=== PATIENT | female | born 1960 ===

== ENCOUNTER 2017-01-28 21:46 | Observation (INO) | payer MEDICAID ==
[2017-01-28 21:46] VITALS: BMI 18.8
[2017-01-28] MEDS ORDERED: Sodium Chloride 0.9% 1,000 ML IV ONE (22:51)
[2017-01-28] MEDS ORDERED: Glucagon Recombinant 1 mg Inj SC STA (22:51)
[2017-01-28] MEDS ORDERED: Sodium Chloride 0.9% 1,000 ML ONE (23:00)
[2017-01-28] MEDS ORDERED: Glucagon Recombinant 1 mg Inj ONE (23:00)
[2017-01-28 23:16] LABS: BASO # 0.1 K/uL (0.0-0.2); BASO % 0.5 % (0.0-2.0); EOS # 0.1 K/uL (0.0-0.7); EOS % 0.9 % (0.0-4.0); HEMATOCRIT 37.8 % (34.0-47.0); LYMPH # 2.4 K/uL (1.0-4.3); LYMPH % 24.4 % (20.0-40.0); MEAN CELL VOLUME 95.2 fL (81.0-99.0); MEAN CORPUSCULAR HEMOGLOBIN 31.9 pg (27.0-31.0); MEAN CORPUSCULAR HGB CONC 33.5 g/dL (33.0-37.0); MEAN PLATELET VOLUME 8.1 fL (7.2-11.7); MONO # 0.7 K/uL (0.0-0.8); MONO % 6.7 % (0.0-10.0); WHITE BLOOD COUNT 9.8 K/uL (4.8-10.8)
[2017-01-28 23:24] LABS: CHLORIDE 104 mmol/L (98-107); SODIUM 141 mmol/L (132-148)
[2017-01-28 23:26] LABS: GFR AFRICAN-AMERICAN > 60
[2017-01-28 23:27] LABS: ALB/GLOB RATIO 1.6 (1.0-2.1); ALKALINE PHOSPHATASE 60 U/L (38-126); ALT/SGPT 33 U/L (9-52); AST/SGOT 23 U/L (14-36); BILIRUBIN,TOTAL 0.4 mg/dL (0.2-1.3); BLOOD UREA NITROGEN 18 mg/dL (7-17); CALCIUM 8.8 mg/dl (8.6-10.4); CARBON DIOXIDE 28 mmol/L (22-30); GLUCOSE,RANDOM 100 mg/dL (65-105); TOTAL PROTEIN 7.3 g/dL (6.3-8.3)
--- NOTE | 2017-01-28 23:48 | C.PDOC ---
History Of Present Illness Patient is a 56 yo female who presents to the ER for impacted food bolus in esophagus; there is a hx of food lodged in esophagus often. Denies fever or chills. Cannot pass PO fluids. + nausea without vomiting. Time Seen by Provider: 01/28/17 22:47 Chief Complaint (Nursing): ENT Problem History Per: Patient History/Exam Limitations: None Onset/Duration Of Symptoms: Mins Current Symptoms Are (Timing): Still Present Past Medical History Reviewed: Historical Data, Nursing Documentation, Vital Signs Vital Signs: Last Vital Signs Temp 97.4 F L 01/28/17 21:57 Pulse 65 01/29/17 01:20 Resp 18 01/29/17 01:20 BP 106/65 01/29/17 01:20 Pulse Ox 100 01/29/17 01:20 - Medical History PMH: Gastritis, Rheumatoid Arthritis (MORE THAN 10 YEARS) Denies: Chronic Kidney Disease Other PMH: 06/2016 distal Schatzki ring not dilated, esophogeal candidiasis Surgical History: Endoscopy (upper endoscopy 06/2016) Other Surgeries: colonoscopy with Dr. Stock in 06/2016. Family History: States: Unknown Family Hx - Social History Hx Alcohol Use: No Hx Substance Use: No - Immunization History Hx Tetanus Toxoid Vaccination: No Hx Influenza Vaccination: No Hx Pneumococcal Vaccination: No Review Of Systems Constitutional: Negative for: Fever, Chills, Sweats Cardiovascular: Negative for: Chest Pain, Palpitations Respiratory: Positive for: Cough (reports of coughing up blood. ). Negative for : Shortness of Breath Gastrointestinal: Positive for: Vomiting (cannot pass fluids). Negative for: Nausea, Diarrhea Psych: Negative for: Anxiety, Depression, Suicidal ideation Physical Exam - Physical Exam Appears: Non-toxic, No Acute Distress Skin: Normal Color, Warm, Dry Head: Atraumatic, Normacephalic Oral Mucosa: Moist Neck: Normal, Supple Chest: Symmetrical, No Tenderness Cardiovascular: Rhythm Regular, No Murmur Respiratory: Normal Breath Sounds, No Rales, No Rhonchi, No Wheezing Gastrointestinal/Abdominal: Normal Exam, Soft, No Tenderness Neurological/Psych: Oriented x3, Normal Speech, Normal Cognition ED Course And Treatment - Laboratory Results Result Diagrams: 01/28/17 23:13 01/28/17 23:13 Lab Interpretation: Normal O2 Sat by Pulse Oximetry: 100 (Room air) Pulse Ox Interpretation: Normal - CT Scan/US CT Neck Other Rad Studies (CT/US): Read By Radiologist, Radiology Report Reviewed CT/US Interpretation: IMPRESSION: Aerated focus of mixed attenuation is identified within the mid to distal esophagus, presumably the. patient's bolus of undigested food, as detailed above. CT Chest Other Rad Studies (CT/US): Read By Radiologist, Radiology Report Reviewed CT/US Interpretation: IMPRESSION: Centrilobular emphysema, without additional pathologic findings, as detailed above. Progress Note: EKG ordered; IV fluids, glucagon SQ ordered. Reevaluation Time: 00:31 - Physician Consult Information Time Consulting Physician Contacted: 11:30 Physician Contacted: Dr. Gauthier (GI fellow covering for Dr. Stock ) Outcome Of Conversation: 0000: d/w GI Dr. Cruz and her Fellow @ bedside, will take to upper endoscopy now, prefers obs under [facility]. 0015: d/w Dr. Naylor and his Jean-Paul- [facility], ok to Obs. Medical Decision Making Medical Decision Making: h/o esophagitis, perla, H.Pylori with treatment after upper endoscopy 07/16. Probably related to chronic steroids for RA distal Shatzki Ring was considered non-obstructing and not dilated CT today w obstructing food bolus @ level of T1, no airway impingement. sent for upper endoscopy STAT Disposition Doctor Will See Patient In The: Hospital Counseled Patient/Family Regarding: Studies Performed, Diagnosis - Disposition Disposition: HOSPITALIZED Disposition Time: 00:34 Condition: GOOD - Clinical Impression Clinical Impression: Food impaction of esophagus - Scribe Statement The provider has reviewed the documentation as recorded by the Scribshantelle Glasgow All medical record entries made by the Ankitibshantelle were at my direction and personally dictated by me. I have reviewed the chart and agree that the record accurately reflects my personal performance of the history, physical exam, medical decision making, and the department course for this patient. I have also personally directed, reviewed, and agree with the discharge instructions and disposition.
--- NOTE | 2017-01-29 00:11 | CT ---
EXAM: CT Chest Without Intravenous Contrast CLINICAL HISTORY: 56 years old, female; Signs and symptoms; Other: Meat bolus; Other: Meat bolus stuck in esophagus; Patient HX: While eating tonight got meat stuck in the neck TECHNIQUE: Axial computed tomography images of the chest without intravenous contrast. All CT scans at this facility use one or more dose reduction techniques, viz.: automated exposure control; ma/kV adjustment per patient size (including targeted exams where dose is matched to indication; i.e. head); or iterative reconstruction technique. Coronal and sagittal reformatted images were created and reviewed. COMPARISON: No relevant prior studies available. FINDINGS: Lungs: No mass. No consolidation. Pleural spaces: No significant effusion. No pneumothorax or hemothorax. Heart: No cardiomegaly. No significant pericardial effusion. Vasculature: The great vessels are intact. No aneurysmal dilatation of the thoracic aortic. Lymph nodes: Scattered lymph nodes within the mediastinum and supraclavicular region, all non-pathologically enlarged, a nonspecific finding. Bones: No acute fractures within either the sternum, ribs or thoracic vertebral bodies. No scapular or clavicular fractures are noted. IMPRESSION: No significant intrathoracic injury, as detailed above EXAM: CT Neck Without Intravenous Contrast CLINICAL HISTORY: 56 years old, female; Signs and symptoms; Other: Meat bolus; Other: Meat bolus stuck in esophagus; Patient HX: While eating tonight got meat stuck in the neck TECHNIQUE: Axial computed tomography images of the neck without intravenous contrast. All CT scans at this facility use one or more dose reduction techniques, viz.: automated exposure control; ma/kV adjustment per patient size (including targeted exams where dose is matched to indication; i.e. head); or iterative reconstruction technique. Coronal and sagittal reformatted images were created and reviewed. COMPARISON: No relevant prior studies available. FINDINGS: Nasopharynx: Unremarkable. Oropharynx: Unremarkable. No significant tonsillar enlargement. Hypopharynx: Unremarkable. Larynx: Unremarkable. Normal epiglottis. Trachea: Unremarkable. Retropharyngeal space: Aerated, likely refluxed gastric contents are identified. Submandibular/parotid glands: Unremarkable. Glands are normal in size. Thyroid: Unremarkable. No enlarged or calcified nodules. Bones/joints: No acute fracture. Soft tissues: Unremarkable. Vasculature: No acute findings. Lymph nodes: Unremarkable. No lymphadenopathy. Lung apices: Unremarkable as visualized. IMPRESSION: Unremarkable CT examination of the neck, as above.
--- NOTE | 2017-01-29 00:59 | CP.PCM.HP ---
History of Present Illness - History of Present Illness History of Present Illness: CC: I was eating meat for dinner and felt like a piece of it got stuck in my throat HPI: Patient is a 56 year old female with pmhx of rheumatoid arthritis, distal schatski ring, esophagitis, perla, H.Pylori with treatment after upper endoscopy 07/16, and herniated disks (C5,6,7 and L1,2) who presents to the ED because she was eating meat and felt like a piece got stuck in her throat. She tried to drink water, but she regurgitated it. She had no pain and still currently has no pain. She is very nauseas, but has not vomited. Patient denies all other complaints including shortness of breath, chest pain, abdominal pain, constipation, and diarrhea PMD: Dr. Shaik Avila Pmhx: rheumatoid arthritis, distal schatski ring, esophagitis, perla, H.Pylori with treatment after upper endoscopy 07/16, and herniated disks (C5,6,7 and L1,2) Psurg: hysterectomy Famhx: Mom: stroke and [place] at 60, Grandmother: stroke at 85 Social: smokes 2 packs of cigarettes per week for 30 years, denies alcohol and drugs Home Medications: Tramadol 50 mg TID, Certolizumab injection every 14 days Present on Admission - Present on Admission Any Indicators Present on Admission: No History of DVT/PE: No History of Uncontrolled Diabetes: No Urinary Catheter: No Decubitus Ulcer Present: No Review of Systems - Constitutional Constitutional: absent: Chills, Fever, Headache - EENT Eyes: absent: Blurred Vision Nose/Mouth/Throat: Dysphagia. absent: Nasal Congestion, Odynophagia - Cardiovascular Cardiovascular: absent: Chest Pain, Dyspnea, Edema, Palpitations - Respiratory Respiratory: absent: Dyspnea - Gastrointestinal Gastrointestinal: Nausea. absent: Constipation, Diarrhea - Musculoskeletal Musculoskeletal: absent: Joint Swelling, Muscle Weakness, Myalgias - Neurological Neurological: absent: Dizziness, Headaches - Psychiatric Psychiatric: absent: Confusion - Hematologic/Lymphatic Hematologic: absent: Easy Bleeding, Easy Bruising Past Patient History - Infectious Disease Hx of Infectious Diseases: None - Past Medical History & Family History Past Medical History?: Yes - Past Social History Smoking Status: Current Some Days Smoker - CARDIAC Hx Cardiac Disorders: No - PULMONARY Hx Respiratory Disorders: No - NEUROLOGICAL Hx Neurological Disorder: No - HEENT Hx HEENT Problems: No - RENAL Hx Chronic Kidney Disease: No - ENDOCRINE/METABOLIC Hx Endocrine Disorders: No - HEMATOLOGICAL/ONCOLOGICAL Hx Blood Disorders: Yes Hx Hepatitis C: Yes (TREATMENT AT [facility] 2005) - INTEGUMENTARY Hx Dermatological Problems: No - MUSCULOSKELETAL/RHEUMATOLOGICAL Hx Rheumatoid Arthritis: Yes (MORE THAN 10 YEARS) - GASTROINTESTINAL Hx Gastritis: Yes - GENITOURINARY/GYNECOLOGICAL Hx Genitourinary Disorders: No - PSYCHIATRIC Hx Substance Use: No - SURGICAL HISTORY Hx Surgeries: Yes Hx Hysterectomy: Yes (2004) - ANESTHESIA Hx Anesthesia: Yes Hx Anesthesia Reactions: No Hx Malignant Hyperthermia: No Meds Allergies/Adverse Reactions: Allergies Allergy/AdvReac Type Severity Reaction Status Date / Time eggs AdvReac PAIN Uncoded 01/20/16 07:33 Physical Exam - Constitutional Appears: Well, Non-toxic, No Acute Distress - Head Exam Head Exam: ATRAUMATIC, NORMAL INSPECTION, NORMOCEPHALIC - Eye Exam Eye Exam: EOMI, Normal appearance - ENT Exam ENT Exam: Mucous Membranes Moist - Neck Exam Neck exam: Positive for: Full Rom. Negative for: Lymphadenopathy - Respiratory Exam Respiratory Exam: Clear to Auscultation Bilateral, NORMAL BREATHING PATTERN - Cardiovascular Exam Cardiovascular Exam: REGULAR RHYTHM, RRR. absent: Gallop, Rubs, Systolic Murmur - GI/Abdominal Exam GI & Abdominal Exam: Normal Bowel Sounds, Soft - Neurological Exam Neurological exam: Alert, Oriented x3 - Psychiatric Exam Psychiatric exam: Normal Affect, Normal Mood - Skin Skin Exam: Intact, Normal Color, Warm Results - Vital Signs Recent Vital Signs: Last Vital Signs Temp 97.4 F L 01/28/17 21:57 Pulse 71 01/28/17 23:15 Resp 74 H 01/28/17 23:57 BP 115/61 01/28/17 23:57 Pulse Ox 100 01/29/17 00:41 - Labs Result Diagrams: 01/28/17 23:13 01/28/17 23:13 Labs: Laboratory Results - last 24 hr 01/28/17 01/28/17 23:13 23:13 WBC 9.8 RBC 3.97 Hgb 12.7 Hct 37.8 MCV 95.2 MCH 31.9 H MCHC 33.5 RDW 13.0 Plt Count 213 MPV 8.1 Neut % (Auto) 67.5 Lymph % (Auto) 24.4 [place] % (Auto) 6.7 Eos % (Auto) 0.9 Baso % (Auto) 0.5 Neut # 6.6 Lymph # 2.4 [place] # 0.7 Eos # 0.1 Baso # 0.1 Sodium 141 Potassium 4.0 Chloride 104 Carbon Dioxide 28 Anion Gap 14 BUN 18 H Creatinine 0.6 L Est GFR ( Amer) > 60 Est GFR (Non-Af Amer) > 60 Random Glucose 100 Calcium 8.8 Total Bilirubin 0.4 AST 23 ALT 33 Alkaline Phosphatase 60 Troponin I < 0.0120 Total Protein 7.3 Albumin 4.5 Globulin 2.8 Albumin/Globulin Ratio 1.6 Assessment & Plan - Assessment and Plan (Free Text) Assessment: 1. Obstructing Food Bolus CT shows bstructing food bolus @ level of T1, no airway impingement Upper endoscopy stat with Dr. Cruz 2. Prophylactic measures SCDs Pepcid 20mg daily
[2017-01-29] MEDS ORDERED: Lactated Ringer's 1,000 ML IV ONE ×2 (01:40)
[2017-01-29] MEDS ORDERED: Propofol 10 mg/ml Inj (20 ML) ONE ×2 (01:41→02:05)
--- NOTE | 2017-01-29 02:46 | CP.PCM.CON ---
<Roxanne Virk - Last Filed: 01/29/17 02:47> History of Present Illness - History of Present Illness History of Present Illness: GI Fellow PGY4 Consult Note This is a 56yF with pmhx of rheumatoid arthritis, distal schatski ring, esophagitis, H.Pylori with treatment after upper endoscopy 12/2015, and herniated disks (C5,6,7 and L1,2) who pw co food getting stuck in throat. Pt was eating steak at 8:30pm when she felt like it got stuck in her throat. She tried to drink water but was unable to swallow and hving pain. Pt continues to spit up saliva. Pt reports issues with solid food dysphagia started last year. Pt had EGD 12/2015 with non obstructing schatzki's ring, pathology positive for H.pylori and signs of perla but cytology negative for fungi. Colonoscopy 2016 with 3 polyps removed from sigmoid, path: tubular adenoma. Pt's Barium Esophagram in 12/2015 was negative for any pathology. ROS: A 12pt ROS was obtained and was negative except as above PmHx: rheumatoid arthritis, nonobstructing distal schatzki's ring, esophagitis, H.Pylori with treatment after upper endoscopy 12/2015, and herniated disks (C5,6, 7 and L1,2) PsHx: hysterectomy FHx: Mom: stroke and [place] at 60, Grandmother: stroke at 85 SHx: smokes 2 packs of cigarettes per week for 30 years, denies alcohol and drugs Past Patient History - Infectious Disease Hx of Infectious Diseases: None - Past Medical History & Family History Past Medical History?: Yes - Past Social History Smoking Status: Current Some Days Smoker - CARDIAC Hx Cardiac Disorders: No - PULMONARY Hx Respiratory Disorders: No - NEUROLOGICAL Hx Neurological Disorder: No - HEENT Hx HEENT Problems: No - RENAL Hx Chronic Kidney Disease: No - ENDOCRINE/METABOLIC Hx Endocrine Disorders: No - HEMATOLOGICAL/ONCOLOGICAL Hx Blood Disorders: Yes Hx Hepatitis C: Yes (TREATMENT AT [facility] 2005) - INTEGUMENTARY Hx Dermatological Problems: No - MUSCULOSKELETAL/RHEUMATOLOGICAL Hx Rheumatoid Arthritis: Yes (MORE THAN 10 YEARS) - GASTROINTESTINAL Hx Gastritis: Yes - GENITOURINARY/GYNECOLOGICAL Hx Genitourinary Disorders: No - PSYCHIATRIC Hx Substance Use: No - SURGICAL HISTORY Hx Surgeries: Yes Hx Hysterectomy: Yes (2004) - ANESTHESIA Hx Anesthesia: Yes Hx Anesthesia Reactions: No Hx Malignant Hyperthermia: No Meds Allergies/Adverse Reactions: Allergies Allergy/AdvReac Type Severity Reaction Status Date / Time eggs AdvReac PAIN Uncoded 01/20/16 07:33 - Medications Medications: Current Medications Famotidine (Pepcid) 20 mg IVP DAILY BIPIN Tramadol HCl (Ultram) 50 mg PO DAILY BIPIN Physical Exam - Constitutional Appears: Non-toxic - Head Exam Head Exam: ATRAUMATIC, NORMAL INSPECTION, NORMOCEPHALIC - Eye Exam Eye Exam: EOMI, Normal appearance, PERRL Pupil Exam: PERRL - ENT Exam ENT Exam: Mucous Membranes Moist - Neck Exam Neck exam: Positive for: Normal Inspection - Respiratory Exam Respiratory Exam: Clear to Auscultation Bilateral, NORMAL BREATHING PATTERN - Cardiovascular Exam Cardiovascular Exam: RRR, +S1, +S2 - GI/Abdominal Exam GI & Abdominal Exam: Normal Bowel Sounds, Soft. absent: Firm, Guarding, Organomegaly, Rebound, Rigid, Tenderness - Rectal Exam Rectal Exam: Deferred - Extremities Exam Extremities exam: Positive for: normal inspection - Back Exam Back exam: NORMAL INSPECTION - Neurological Exam Neurological exam: Alert, Oriented x3 - Psychiatric Exam Psychiatric exam: Normal Affect, Normal Mood - Skin Skin Exam: Intact, Normal Color, Warm - Additional Findings Additional findings: Appears uncomfortable and spitting up saliva, unable to drink water Results - Vital Signs Recent Vital Signs: Last Vital Signs Temp 98 F 01/29/17 02:15 Pulse 56 L 01/29/17 02:30 Resp 17 01/29/17 02:30 BP 124/75 01/29/17 02:30 Pulse Ox 99 01/29/17 02:30 - Labs Result Diagrams: 01/28/17 23:13 01/28/17 23:13 Assessment & Plan - Assessment and Plan (Free Text) Assessment: This is a 56yF pw co food being stuck in throat and having difficulty swallowing 1. Food Impaction 2. Acute Dysphagia 3. Hx Schatzki's ring and H.pylori infection Plan: -Plan for emergent endoscopic evaluation for food impaction -Pt unable to tolerate liquids at bedside -Case discussed with nursing staff and affirmative action specialist team has been called -Discussed case with attending Dr Cruz and will plan EGD within the next 1hour -Results to follow after EGD <Michael Cruz MD - Last Filed: 01/29/17 10:10> Meds - Medications Medications: Current Medications Famotidine (Pepcid) 20 mg IVP DAILY BIPIN Pneumococcal Polyvalent Vaccine (Pneumovax 23 Vaccine) 0.5 ml IM .ONCE ONE Stop: 01/31/17 10:01 Tramadol HCl (Ultram) 50 mg PO DAILY BIPIN Results - Vital Signs Recent Vital Signs: Last Vital Signs Temp 98.8 F 01/29/17 07:00 Pulse 67 01/29/17 07:00 Resp 20 01/29/17 07:00 BP 120/58 L 01/29/17 07:00 Pulse Ox 100 01/29/17 07:00 - Labs Result Diagrams: 01/28/17 23:13 01/28/17 23:13 Attending/Attestation - Attestation I have personally seen and examined this patient.: Yes I have fully participated in the care of the patient.: Yes I have reviewed all pertinent clinical information: Yes Notes (Text): 01/29/17 10:08 This is a 56 year old F admitted with feeling of steak stuck in the throat with difficulty swallowing. s/p urgent EGD with removal of impacted food with feldman net. Antral biopsies taken for H pylori with esophageal brushings for perla. Follow up biospies and start diet as tolerated. To follow with GI as outpatient. PPI daily
[2017-01-29 03:04] VITALS: O2SAT 100
--- NOTE | 2017-01-29 14:52 | CP.PCM.DIS ---
Provider - Provider Date of Admission: 01/29/17 00:25 Attending physician: Juice Naylor Jr, MD Time Spent in preparation of Discharge (in minutes): 40 Hospital Course - Lab Results Lab Results: Most Recent Lab Values WBC 9.8 K/uL (4.8-10.8) 01/28/17 23:13 RBC 3.97 Mil/uL (3.80-5.20) 01/28/17 23:13 Hgb 12.7 g/dL (11.0-16.0) 01/28/17 23:13 Hct 37.8 % (34.0-47.0) 01/28/17 23:13 MCV 95.2 fL (81.0-99.0) 01/28/17 23:13 MCH 31.9 pg (27.0-31.0) H 01/28/17 23:13 MCHC 33.5 g/dL (33.0-37.0) 01/28/17 23:13 RDW 13.0 % (11.5-14.5) 01/28/17 23:13 Plt Count 213 K/uL (130-400) 01/28/17 23:13 MPV 8.1 fL (7.2-11.7) 01/28/17 23:13 Neut % (Auto) 67.5 % (50.0-75.0) 01/28/17 23:13 Lymph % (Auto) 24.4 % (20.0-40.0) 01/28/17 23:13 [place] % (Auto) 6.7 % (0.0-10.0) 01/28/17 23:13 Eos % (Auto) 0.9 % (0.0-4.0) 01/28/17 23:13 Baso % (Auto) 0.5 % (0.0-2.0) 01/28/17 23:13 Neut # 6.6 K/uL (1.8-7.0) 01/28/17 23:13 Lymph # 2.4 K/uL (1.0-4.3) 01/28/17 23:13 [place] # 0.7 K/uL (0.0-0.8) 01/28/17 23:13 Eos # 0.1 K/uL (0.0-0.7) 01/28/17 23:13 Baso # 0.1 K/uL (0.0-0.2) 01/28/17 23:13 Sodium 141 mmol/L (132-148) 01/28/17 23:13 Potassium 4.0 mmol/L (3.6-5.2) 01/28/17 23:13 Chloride 104 mmol/L (98-107) 01/28/17 23:13 Carbon Dioxide 28 mmol/L (22-30) 01/28/17 23:13 Anion Gap 14 (10-20) 01/28/17 23:13 BUN 18 mg/dL (7-17) H 01/28/17 23:13 Creatinine 0.6 MG/DL (0.7-1.2) L 01/28/17 23:13 Est GFR ( Amer) > 60 01/28/17 23:13 Est GFR (Non-Af Amer) > 60 01/28/17 23:13 Random Glucose 100 mg/dL (65-105) 01/28/17 23:13 Calcium 8.8 mg/dl (8.6-10.4) 01/28/17 23:13 Total Bilirubin 0.4 mg/dL (0.2-1.3) 01/28/17 23:13 AST 23 U/L (14-36) 01/28/17 23:13 ALT 33 U/L (9-52) 01/28/17 23:13 Alkaline Phosphatase 60 U/L (38-126) 01/28/17 23:13 Troponin I < 0.0120 ng/mL (0.00-0.120) 01/28/17 23:13 Total Protein 7.3 g/dL (6.3-8.3) 01/28/17 23:13 Albumin 4.5 g/dL (3.5-5.0) 01/28/17 23:13 Globulin 2.8 gm/dL (2.2-3.9) 01/28/17 23:13 Albumin/Globulin Ratio 1.6 (1.0-2.1) 01/28/17 23:13 - Hospital Course Hospital Course: CC: I was eating meat for dinner and felt like a piece of it got stuck in my throat HPI: Patient is a 56 year old female with pmhx of rheumatoid arthritis, distal schatski ring, esophagitis, perla, H.Pylori with treatment after upper endoscopy 07/16, and herniated disks (C5,6,7 and L1,2) who presents to the ED because she was eating meat and felt like a piece got stuck in her throat. She tried to drink water, but she regurgitated it. She had no pain and still currently has no pain. She is very nauseas, but has not vomited. Patient denies all other complaints including shortness of breath, chest pain, abdominal pain, constipation, and diarrhea PMD: Dr. Shaik Avila Pmhx: rheumatoid arthritis, distal schatski ring, esophagitis, perla, H.Pylori with treatment after upper endoscopy 07/16, and herniated disks (C5,6,7 and L1,2) Psurg: hysterectomy Famhx: Mom: stroke and ID at 60, Grandmother: stroke at 85 Social: smokes 2 packs of cigarettes per week for 30 years, denies alcohol and drugs Home Medications: Tramadol 50 mg TID, Certolizumab injection every 14 days Hospital Course: 01/29: CT of the neck and Chest was done which was within normal limits. GI was consulted, Dr. Cruz and Emergent endoscopic evaluation for food impaction was performed. Food bolus was removed. Patient stable for discharge per Dr. Naylor. Patient to follow up with primary care doctor in one week. If symptoms worsen patient to return to Emergency Department. This is a brief summary of events. For a complete course, refer to the medical record. Discharge Exam - Head Exam Head Exam: ATRAUMATIC, NORMAL INSPECTION, NORMOCEPHALIC - Eye Exam Eye Exam: EOMI, Normal appearance, PERRL Pupil Exam: NORMAL ACCOMODATION - ENT Exam ENT Exam: Mucous Membranes Moist, Normal Oropharynx - Respiratory Exam Respiratory Exam: Clear to PA & Lateral, NORMAL BREATHING PATTERN - Cardiovascular Exam Cardiovascular Exam: REGULAR RHYTHM, RRR, +S1, +S2 - GI/Abdominal Exam GI & Abdominal Exam: Normal Bowel Sounds, Soft. absent: Tenderness - Extremities Exam Extremities exam: normal inspection - Neurological Exam Neurological exam: Alert, Oriented x3 - Psychiatric Exam Psychiatric exam: Normal Affect, Normal Mood - Skin Skin Exam: Normal Color, Warm Discharge Plan - Follow Up Plan Condition: GOOD Disposition: HOME/ ROUTINE Instructions: How to Stop Smoking (DC), Cigarette Smoking and Your Health (GEN) , Upper Endoscopy (DC), Food Impaction (GEN) Additional Instructions: Activity as tolerated. If symptoms worsen patient to return to Emergency Department.
[2017-01-29 15:49] VITALS: BP 121/71; PULSE 61; RESP 18; TEMP 98.1
[2017-01-31] MEDS ORDERED: Pneumococcal 23-Valent Vaccine IM ONE (10:00)
--- NOTE | 2017-02-11 20:31 | CARD ---
APPROVED REPORT EKG Measurement Heart [id number] <Conclusion> Normal sinus rhythm non specific st t changes.
== END 2017-01-29 19:00 | disposition home or self-care (01) ==
LOC: C.ER 21:46 → C.9E 01-29 00:25 → C.6T 01-29 00:25
PROVIDERS: ADMIT Internal Medicine; ATTEND Internal Medicine
DX: T18.128A Food in esophagus causing other injury, initial encounter (principal); X58.XXXA Exposure to other specified factors, initial encounter; Y92.9 Unspecified place or not applicable; B37.81 Candidal esophagitis; K25.9 Gastric ulcer, unspecified as acute or chronic, without hemorrhage or perforation; K44.9 Diaphragmatic hernia without obstruction or gangrene; M06.9 Rheumatoid arthritis, unspecified; R11.0 Nausea; F17.210 Nicotine dependence, cigarettes, uncomplicated
CPT/HCPCS: 43247; 70490; 71250; 80053; 84484; 85025; 96360; 96372; 99285; G0378; J1610; J7040; J7120

== ENCOUNTER 2017-10-12 09:16 | Emergency (ER) | payer MEDICAID ==
[2017-10-12 09:17] VITALS: BMI 18.8
[2017-10-12] MEDS ORDERED: Sodium Chloride 0.9% 1,000 ML IV STA (09:56)
[2017-10-12] MEDS ORDERED: Sodium Chloride 0.9% 1,000 ML ONE (10:16)
[2017-10-12 10:36] LABS: BASO % 0.6 % (0.0-2.0); EOS % 0.4 % (0.0-4.0); HEMOGLOBIN 14.2 g/dL (11.0-16.0); LYMPH # 1.3 K/uL (1.0-4.3); LYMPH % 28.1 % (20.0-40.0); MEAN CELL VOLUME 92.4 fL (81.0-99.0); MEAN CORPUSCULAR HEMOGLOBIN 32.4 pg (27.0-31.0); MEAN CORPUSCULAR HGB CONC 35.1 g/dL (33.0-37.0); MEAN PLATELET VOLUME 8.1 fL (7.2-11.7); MONO # 0.7 K/uL (0.0-0.8); NEUT # 2.6 K/uL (1.8-7.0); NEUT % 54.9 % (50.0-75.0); NRBC % 0.1 % (0.0-2.0); RBC 4.39 Mil/uL (3.80-5.20); RED CELL DISTRIBUTION WIDTH 13.2 % (11.5-14.5); WHITE BLOOD COUNT 4.7 K/uL (4.8-10.8)
[2017-10-12 10:50] LABS: ALB/GLOB RATIO 1.3 (1.0-2.1); ALBUMIN 4.6 g/dL (3.5-5.0); ALT/SGPT 21 U/L (9-52); AST/SGOT 42 U/L (14-36); BLOOD UREA NITROGEN 11 mg/dL (7-17); CALCIUM 9.4 mg/dl (8.6-10.4); GFR AFRICAN-AMERICAN > 60; GFR NON-AFRICAN AMERICAN > 60; LIPASE 91 U/L (23-300)
--- NOTE | 2017-10-12 11:50 | C.PDOC ---
History Of Present Illness 57 year old female presents to the emergency department with complaints of abdominal pain persisting for the last few days. Patient states that she is experiencing nausea, vomiting, diarrhea, and weakness. She denies recent travel or sick contact. Time Seen by Provider: 10/12/17 09:46 Chief Complaint (Nursing): Abdominal Pain History Per: Patient History/Exam Limitations: no limitations Onset/Duration Of Symptoms: Days Context: Food Location Of Pain/Discomfort: Other (abdominal pain) Associated Symptoms: Nausea, Vomiting, Diarrhea Exacerbating Factors: Food Past Medical History Reviewed: Historical Data, Nursing Documentation, Vital Signs Vital Signs: Last Vital Signs Temp 98.7 F 10/12/17 12:36 Pulse 73 10/12/17 12:36 Resp 16 10/12/17 12:36 BP 114/68 10/12/17 12:36 Pulse Ox 100 10/12/17 13:04 - Medical History PMH: Back Problems (herniated disc), Gastritis, Rheumatoid Arthritis Denies: Chronic Kidney Disease Surgical History: Endoscopy (upper endoscopy 06/2016) Family History: States: No Known Family Hx - Social History Hx Alcohol Use: No Hx Substance Use: No - Immunization History Hx Tetanus Toxoid Vaccination: No Hx Influenza Vaccination: No Hx Pneumococcal Vaccination: No Review Of Systems Except As Marked, All Systems Reviewed And Found Negative. Gastrointestinal: Positive for: Nausea, Vomiting, Abdominal Pain, Diarrhea Physical Exam - Physical Exam Appears: Non-toxic, No Acute Distress Skin: Normal Color, Warm Head: Atraumatic, Normacephalic Eye(s): bilateral: Normal Inspection Chest: Symmetrical, No Tenderness Cardiovascular: Rhythm Regular Respiratory: Normal Breath Sounds Gastrointestinal/Abdominal: Normal Exam, Soft, Tenderness (mild epigastric tenderness ), No Distention, No Guarding, No Rebound Back: Normal Inspection, No CVA Tenderness Extremity: Normal ROM, No Pedal Edema Neurological/Psych: Oriented x3, Normal Speech, Normal Cognition ED Course And Treatment - Laboratory Results Result Diagrams: 10/12/17 10:31 10/12/17 10:31 O2 Sat by Pulse Oximetry: 100 (RA) Pulse Ox Interpretation: Normal Progress Note: Plan: CMP. Lipase. CBC. Protonix 40mg IVP. NaCl IV Fluids. Zofran 4mg IVP. Urinalysis. All labs were reviewed and w/o acute abnormalities. On re-evaluation patient feels better, tolerates po and is stable to be d/c home with PMD follow up. Disposition - Disposition Referrals: Shaik Avila MD [Staff Provider] - Disposition: HOME/ ROUTINE Disposition Time: 12:51 Condition: IMPROVED Additional Instructions: Follow up with PMD within 1-2 days. Return to ED if feel worse. Prescriptions: Famotidine [Pepcid] 20 mg PO BID #20 tab Ondansetron ODT [Zofran ODT] 4 mg PO .Q4-6H PRN #20 odt PRN Reason: Nausea/Vomiting Instructions: Viral Gastroenteritis, Adult (DC) Forms: [employer] (Sami) - Clinical Impression Clinical Impression: Gastroenteritis - PA / SALES SPECIALIST / Resident Statement MD/DO has reviewed & agrees with the documentation as recorded. - Scribe Statement The provider has reviewed the documentation as recorded by the Scribe (Errol Carl) All medical record entries made by the Scribe were at my direction and personally dictated by me. I have reviewed the chart and agree that the record accurately reflects my personal performance of the history, physical exam, medical decision making, and the department course for this patient. I have also personally directed, reviewed, and agree with the discharge instructions and disposition.
[2017-10-12 11:56] LABS: SQUAMOUS EPITHIAL 3 /hpf (0-5); URINE BILIRUBIN NEGATIVE (NEGATIVE); URINE BLOOD NEGATIVE (NEGATIVE); URINE CLARITY Hazy (Clear); URINE COLOR Yellow (YELLOW); URINE GLUCOSE (UA) NORMAL (Normal); URINE LEUKOCYTE ESTERASE NEG Leu/uL (Negative); URINE PROTEIN 1+ mg/dL (NEGATIVE); URINE UROBILINOGEN NORMAL mg/dL (0.2-1.0)
[2017-10-12 12:37] VITALS: BP 114/68; PULSE 73; RESP 16; TEMP 98.7
[2017-10-12 12:51] VITALS: O2SAT 100
== END 2017-10-12 13:26 | disposition home or self-care (01) ==
LOC: C.ER 09:16
DX: K52.9 Noninfective gastroenteritis and colitis, unspecified (principal)
CPT/HCPCS: 80053; 81001; 83690; 85025; 96374; 96375; 99284; C9113; J2405; J7040

== ENCOUNTER 2018-08-20 19:36 | Inpatient (IN) | payer MEDICAID ==
[2018-08-20 19:39] VITALS: BMI 18.8
--- NOTE | 2018-08-20 21:25 | C.PDOC ---
History Of Present Illness 58 year old female, whose past medical history includes esophagitis and distal schatski ring, presents for evaluation of food bolus stuck in her throat. Patient reports inability to swallow and sensation of food getting stuck after e ating rib meat prior to arrival. Patient reports experiencing similar symptoms in the past, one year ago. Patient states she has been spitting up due to inability to swallow, but denies vomiting. She is speaking in full sentences and denies shortness of breath. Time Seen by Provider: 08/20/18 20:56 Chief Complaint (Nursing): ENT Problem History Per: Patient History/Exam Limitations: None Onset/Duration Of Symptoms: Hrs Current Symptoms Are (Timing): Still Present Past Medical History Reviewed: Historical Data, Nursing Documentation, Vital Signs Vital Signs: Last Vital Signs Temp 97.7 F 08/20/18 19:48 Pulse 87 08/20/18 19:48 Resp 16 08/20/18 19:48 BP 131/72 08/20/18 19:48 Pulse Ox 97 08/20/18 19:48 - Medical History PMH: Back Problems (herniated disc), Gastritis, Rheumatoid Arthritis Denies: Chronic Kidney Disease Surgical History: Endoscopy (upper endoscopy 06/2016) Family History: States: Unknown Family Hx - Social History Hx Alcohol Use: No Hx Substance Use: No - Immunization History Hx Tetanus Toxoid Vaccination: No Hx Influenza Vaccination: No Hx Pneumococcal Vaccination: No Review Of Systems ENT: Positive for: Other (food bolus stuck in throat, inability to swallow ) Respiratory: Negative for: Shortness of Breath Gastrointestinal: Negative for: Vomiting Physical Exam - Physical Exam Appears: Non-toxic, No Acute Distress, Other (uncomfortable ) Skin: Normal Color, Warm, Dry Head: Atraumatic, Normacephalic Eye(s): bilateral: Normal Inspection Oral Mucosa: Moist Throat: Normal, No Erythema, No Exudate Neck: Supple Chest: Symmetrical, No Deformity, No Tenderness Cardiovascular: Rhythm Regular, No Murmur Respiratory: Normal Breath Sounds, No Rales, No Rhonchi, No Wheezing, Other (speaking in full sentences ) Gastrointestinal/Abdominal: Soft, No Tenderness Extremity: Normal ROM, Capillary Refill (less than 2 seconds ) Neurological/Psych: Normal Speech, Normal Cognition ED Course And Treatment - Laboratory Results Result Diagrams: 08/20/18 22:01 03/24/19 22:01 O2 Sat by Pulse Oximetry: 97 (on RA) Pulse Ox Interpretation: Normal - CT Scan/US CT Neck Other Rad Studies (CT/US): Read By Radiologist, Radiology Report Reviewed CT/US Interpretation: EXAM: CT Neck without Intravenous Contrast. CLINICAL HISTORY: FOOD BOLLUS STUCK RIBS. TECHNIQUE: Axial computed tomography images of the neck without intravenous contrast. Sagittal and coronal reformatted images were generated. 0.00 mGy-cm. CONTRAST: Without. COMPARISON: Comparison is made to a prior CT neck examination dated 01/28/2017. FINDINGS: ESOPHAGUS: A bolus of food is seen lodged within a mildly distended lower cervical esophagus. In the sagittal reconstructed images, the bolus of lie just food is at the level of C6-7/T1-2. PHARYNX: Unremarkable appearance of the nasopharynx, oropharyx, and hypopharynx. No pharyngeal mucosal based mass lesions. LARYNX: The larynx is unremarkable. The epiglottis appears normal. RETROPHARYNGEAL SPACE: No retropharyngeal soft tissue swelling or gas. SALIVARY GLANDS: Unremarkable appearance of the parotid, submandibular, and sublingual glands. LYMPH NODES: No significant lymphadenopathy. VASCULAR: Scattered atheromatous calcific plaquing is noted within the common carotid arteries and carotid bulbs bilaterally. THYROID: The thyroid gland is unremarkable. No nodule is evident. BONES: No aggressive appearing osseous lesion. No acute osseous abnormality. IMPRESSION: 1. A bolus of food is seen lodged within the lower cervical esophagus as described above. 2. Atheromatous calcific plaquing within the common carotid arteries and carotid bulbs bilaterally. CT Chest Other Rad Studies (CT/US): Read By Radiologist, Radiology Report Reviewed CT/US Interpretation: EXAM: CT Chest without Intravenous Contrast. CLINICAL HISTORY: FOOD BOLUS STUCK RIBS. TECHNIQUE: Axial computed tomography images of the chest without intravenous contrast. 0.00 mGy-cm. CONTRAST: Without. COMPARISON: The report from a prior CT thorax dated 01/29/2017 was reviewed. FINDINGS: LUNGS: The lungs appear essentially clear. No pulmonary mass. PLEURAL SPACES: No pneumothorax evident. No pleural effusions. HEART: No cardiomegaly. No pericardial effusion. Minor atherosclerotic vascular plaquing seen within the aortic arch and descending thoracic aorta. MEDIASTINUM: There is circumferential mucosal wall thickening of the mid-lower esophagus possibly compatible with esophagitis. No radiopaque foreign bodies seen. No definite identification of a food bolus lodged within the thoracic esophagus. LYMPH NODES: No lymphadenopathy is evident. BONES: No focal osseous abnormality or acute fracture. UPPER ABDOMEN: The upper abdominal solid organs are unremarkable. IMPRESSION: 1. Minor atherosclerotic vascular plaquing. 2. Circumferential mucosal wall thickening of the mid-lower thoracic esophagus poss ibly compatible with esophagitis. Medical Decision Making Medical Decision Making: Progress: Bloodwork and urinalysis ordered and reviewed. CT Chest, CT Neck & Soft Tissue ordered and reviewed. Disposition - Disposition - Scribe Statement The provider has reviewed the documentation as recorded by the Scribe (Mare Meade) Provider Attestation: All medical record entries made by the Scribe were at my direction and personally dictated by me. I have reviewed the chart and agree that the record accurately reflects my personal performance of the history, physical exam, medical decision making, and the department course for this patient. I have also personally directed, reviewed, and agree with the discharge instructions and disposition.
[2018-08-20] MEDS ORDERED: Glucagon Recombinant 1 mg Inj IV STA (21:29)
[2018-08-20] MEDS ORDERED: Glucagon Recombinant 1 mg Inj ONE (21:57)
[2018-08-20 22:05] LABS: BASO # 0.1 K/uL (0.0-0.2); BASO % 1.1 % (0.0-2.0); EOS # 0.2 K/uL (0.0-0.7); EOS % 2.1 % (0.0-4.0); HEMOGLOBIN 12.4 g/dL (11.0-16.0); LYMPH # 2.9 K/uL (1.0-4.3); LYMPH % 26.5 % (20.0-40.0); MEAN CELL VOLUME 96.2 fL (81.0-99.0); MEAN CORPUSCULAR HEMOGLOBIN 32.2 pg (27.0-31.0); MEAN CORPUSCULAR HGB CONC 33.5 g/dL (33.0-37.0); MEAN PLATELET VOLUME 8.1 fL (7.2-11.7); MONO # 0.8 K/uL (0.0-0.8); MONO % 7.5 % (0.0-10.0); NEUT # 6.8 K/uL (1.8-7.0); NEUT % 62.8 % (50.0-75.0); RBC 3.85 Mil/uL (3.80-5.20); RED CELL DISTRIBUTION WIDTH 12.7 % (11.5-14.5); WHITE BLOOD COUNT 10.8 K/uL (4.8-10.8)
[2018-08-20 22:16] LABS: ALB/GLOB RATIO 1.6 (1.0-2.1); ALBUMIN 4.5 g/dL (3.5-5.0); ALT/SGPT 19 U/L (9-52); AST/SGOT 23 U/L (14-36); BLOOD UREA NITROGEN 18 mg/dL (7-17); CALCIUM 9.7 mg/dl (8.6-10.4); GFR NON-AFRICAN AMERICAN > 60
[2018-08-20 22:18] LABS: INR 1.1; PROTHROMBIN TIME 11.9 SECONDS (9.7-12.2)
[2018-08-20] MEDS ORDERED: metroNIDAZOLE IV 500 mg/100 ml 500 MG/100 ML BAG IVPB STA (23:31)
--- NOTE | 2018-08-21 07:28 | CP.PCM.HP ---
History of Present Illness - History of Present Illness History of Present Illness: ss 58-year-old female comes to the ER complaining of a food bolus stuck in her throat. Patient was eating spareribs when the episode took place. Presently she has discomfort but denies shortness of breath or nausea. Patient had a similar episode one year ago. Patient has a past history of esophagitis and rheumatoid arthritis. Her only medication at the present time is a biologic agent called Cimzia which she injects every 14 days. Present on Admission - Present on Admission Any Indicators Present on Admission: No History of DVT/PE: No History of Uncontrolled Diabetes: No Urinary Catheter: No Decubitus Ulcer Present: No History Surgical Site Infection Following: None Review of Systems - Constitutional Constitutional: Malaise - EENT Nose/Mouth/Throat: Sore Throat - Respiratory Respiratory: Excessive Mucous Production - Gastrointestinal Gastrointestinal: Constipation - Reproductive: Female Reproductive:Female: Menopausal - Musculoskeletal Musculoskeletal: Arthralgias - Psychiatric Psychiatric: Anxiety Past Patient History - Infectious Disease Hx of Infectious Diseases: None - Past Medical History & Family History Past Medical History?: Yes - Past Social History Smoking Status: Light Smoker < 10 Cigarettes Daily Chewing Tobacco Use: No Cigar Use: No Alcohol: None Drugs: Denies Home Situation {Lives}: Friends - CARDIAC Hx Cardiac Disorders: No - PULMONARY Hx Respiratory Disorders: No - NEUROLOGICAL Hx Neurological Disorder: No Hx Migraine: Yes - HEENT Hx HEENT Problems: No - RENAL Hx Chronic Kidney Disease: No - ENDOCRINE/METABOLIC Hx Endocrine Disorders: No - HEMATOLOGICAL/ONCOLOGICAL Hx Blood Disorders: Yes Hx Hepatitis C: Yes (TREATMENT AT [facility] 2005) - INTEGUMENTARY Hx Dermatological Problems: No Hx Eczema: Yes Other/Comment: Eczema Sometimes - MUSCULOSKELETAL/RHEUMATOLOGICAL Hx Arthritis: Yes Hx Falls: No Hx Rheumatoid Arthritis: Yes - GASTROINTESTINAL Hx Gastritis: Yes HX Swallowing Problems: Yes - GENITOURINARY/GYNECOLOGICAL Hx Genitourinary Disorders: No - PSYCHIATRIC Hx Anxiety: Yes Hx Substance Use: No - SURGICAL HISTORY Hx Surgeries: Yes Hx Hysterectomy: Yes (2004) Other/Comment: Endoscopy,Colonoscopy. - ANESTHESIA Hx Anesthesia: Yes Hx Anesthesia Reactions: No Hx Malignant Hyperthermia: No Meds Allergies/Adverse Reactions: Allergies Allergy/AdvReac Type Severity Reaction Status Date / Time eggs AdvReac PAIN Uncoded 08/20/18 19:51 Physical Exam - Constitutional Appears: No Acute Distress - Head Exam Head Exam: ATRAUMATIC - Eye Exam Pupil Exam: NORMAL ACCOMODATION - ENT Exam ENT Exam: Normal Exam - Respiratory Exam Respiratory Exam: NORMAL BREATHING PATTERN - Cardiovascular Exam Cardiovascular Exam: REGULAR RHYTHM - GI/Abdominal Exam GI & Abdominal Exam: Normal Bowel Sounds - Extremities Exam Extremities exam: Positive for: pedal pulses present - Back Exam Back exam: NORMAL INSPECTION - Neurological Exam Neurological exam: Oriented x3 - Psychiatric Exam Psychiatric exam: Anxious - Skin Skin Exam: Dry Results - Vital Signs Recent Vital Signs: Last Vital Signs Temp 98.1 F 08/21/18 00:40 Pulse 60 08/21/18 00:40 Resp 20 08/21/18 00:40 BP 144/81 08/21/18 00:40 Pulse Ox 100 08/21/18 00:40 - Labs Result Diagrams: 08/20/18 22:01 08/20/18 22:01 Labs: Laboratory Results - last 24 hr 08/20/18 08/20/18 08/20/18 22:01 22:01 22:01 WBC 10.8 D RBC 3.85 Hgb 12.4 Hct 37.0 MCV 96.2 D MCH 32.2 H MCHC 33.5 RDW 12.7 Plt Count 288 MPV 8.1 Neut % (Auto) 62.8 Lymph % (Auto) 26.5 [place] % (Auto) 7.5 Eos % (Auto) 2.1 Baso % (Auto) 1.1 Neut # (Auto) 6.8 Lymph # (Auto) 2.9 [place] # (Auto) 0.8 Eos # (Auto) 0.2 Baso # (Auto) 0.1 PT 11.9 INR 1.1 APTT 33 Sodium 140 Potassium 3.7 Chloride 102 Carbon Dioxide 31 H Anion Gap 11 BUN 18 H Creatinine 0.6 L Est GFR ( Amer) > 60 Est GFR (Non-Af Amer) > 60 Random Glucose 121 H D Calcium 9.7 Total Bilirubin 0.2 AST 23 ALT 19 Alkaline Phosphatase 82 Total Protein 7.2 Albumin 4.5 Globulin 2.8 Albumin/Globulin Ratio 1.6 Assessment & Plan (1) Rheumatoid arthritis Status: Chronic (2) Esophagitis Status: Acute (3) Food impaction of esophagus Status: Acute
--- NOTE | 2018-08-21 09:21 | CARD ---
APPROVED REPORT Date of service: 08/20/2018 EKG Measurement Heart [id number] <Conclusion> Normal sinus rhythm Normal ECG
--- NOTE | 2018-08-21 09:37 | CP.PCM.CON ---
History of Present Illness - History of Present Illness History of Present Illness: Gastroenterology Fellow/PGY6 Consult Note for Dr. Zuniga 58 year old female with PMH of Rheumatoid arthritis (on Cimzia), Schatzki's rin g, esophageal food bolus s/p extraction 01/2017, and tobacco abuse presenting with meat stuck in throat. Patient notes eating ribs yesterday with immediate sensation of being stuck in her throat. She attempted to drink liquids without relief with persistent salivation leading to ER presentation. Admits to use of omeprazole every other day since last endoscopy 01/2017. Denies vomiting, dysphagia, odynophagia, abdominal pain, chest pain, shortness of breath, diarrhea, constipation, melena, or hematochezia. Notes 35 pound unintentional weight loss over the last two years. Continues to smoke two packs per day. No further follow up with GI since admission 01/2017 for food bolus. EGD 12/2015 showed Trina esophagitis, H. pylori gastritis s/p eradication, and normal duodenal biopsies. EGD 01/2017 showed food bolus s/p removal with Valdes net, trina esophagitis, distal third esophageal Schatzki's ring, medium-sized hiatal hernia, and H. pylori negative erosive gastritis. Colonoscopy 06/2016 showed two 3-4mm sigmoid tubular adenomas, mild internal hemorrhoids, and good bowel prep with recomm ended five year surveillance. Family History- denies stomach cancer, colon cancer Social History-2ppd over 30 years, denies alcohol or illicit drug use Surgical History- hysterectomy Review of Systems - Review of Systems Review of Systems: 12-point review of systems negative except for as above Past Patient History - Infectious Disease Hx of Infectious Diseases: None - Past Medical History & Family History Past Medical History?: Yes - Past Social History Smoking Status: Light Smoker < 10 Cigarettes Daily Chewing Tobacco Use: No Cigar Use: No Alcohol: None Drugs: Denies Home Situation {Lives}: Friends - CARDIAC Hx Cardiac Disorders: No - PULMONARY Hx Respiratory Disorders: No - NEUROLOGICAL Hx Neurological Disorder: No Hx Migraine: Yes - HEENT Hx HEENT Problems: No - RENAL Hx Chronic Kidney Disease: No - ENDOCRINE/METABOLIC Hx Endocrine Disorders: No - HEMATOLOGICAL/ONCOLOGICAL Hx Blood Disorders: Yes Hx Hepatitis C: Yes (TREATMENT AT [facility] 2005) - INTEGUMENTARY Hx Dermatological Problems: No Hx Eczema: Yes Other/Comment: Eczema Sometimes - MUSCULOSKELETAL/RHEUMATOLOGICAL Hx Arthritis: Yes Hx Falls: No Hx Rheumatoid Arthritis: Yes - GASTROINTESTINAL Hx Gastritis: Yes HX Swallowing Problems: Yes - GENITOURINARY/GYNECOLOGICAL Hx Genitourinary Disorders: No - PSYCHIATRIC Hx Anxiety: Yes Hx Substance Use: No - SURGICAL HISTORY Hx Surgeries: Yes Hx Hysterectomy: Yes (2004) Other/Comment: Endoscopy,Colonoscopy. - ANESTHESIA Hx Anesthesia: Yes Hx Anesthesia Reactions: No Hx Malignant Hyperthermia: No Meds Allergies/Adverse Reactions: Allergies Allergy/AdvReac Type Severity Reaction Status Date / Time eggs AdvReac PAIN Uncoded 08/20/18 19:51 - Medications Medications: Current Medications Influenza Virus Vaccine (Flucelvax Quad [id number] Syr) 60 mcg IM .ONCE ONE Stop: 08/22/18 10:01 Pneumococcal Polyvalent Vaccine (Pneumovax 23 Vaccine) 0.5 ml IM .ONCE ONE Stop: 08/22/18 10:01 Physical Exam - Constitutional Appears: Non-toxic, No Acute Distress - Head Exam Head Exam: ATRAUMATIC, NORMOCEPHALIC - Eye Exam Eye Exam: EOMI, PERRL. absent: Scleral icterus Pupil Exam: PERRL. absent: Miosis, Mydriatic - ENT Exam ENT Exam: Mucous Membranes Moist, Normal Oropharynx - Neck Exam Neck exam: Positive for: Full Rom, Normal Inspection - Respiratory Exam Respiratory Exam: Clear to Auscultation Bilateral. absent: Rales, Rhonchi, Wheezes - Cardiovascular Exam Cardiovascular Exam: RRR, +S1, +S2. absent: Gallop, Rubs - GI/Abdominal Exam GI & Abdominal Exam: Normal Bowel Sounds, Soft. absent: Distended, Firm, Guarding, Organomegaly, Rebound, Rigid, Tenderness - Extremities Exam Extremities exam: Positive for: normal inspection. Negative for: pedal edema - Neurological Exam Neurological exam: Alert, Oriented x3 - Psychiatric Exam Psychiatric exam: Normal Affect, Normal Mood - Skin Skin Exam: Dry, Intact, Normal Color, Warm Results - Vital Signs Recent Vital Signs: Last Vital Signs Temp 98.3 F 08/21/18 08:34 Pulse 63 08/21/18 08:34 Resp 20 08/21/18 08:34 BP 110/63 08/21/18 08:34 Pulse Ox 100 08/21/18 08:34 - Labs Result Diagrams: 08/20/18 22:01 08/20/18 22:01 Labs: Laboratory Results - last 24 hr 08/20/18 08/20/18 08/20/18 22:01 22:01 22:01 WBC 10.8 D RBC 3.85 Hgb 12.4 Hct 37.0 MCV 96.2 D MCH 32.2 H MCHC 33.5 RDW 12.7 Plt Count 288 MPV 8.1 Neut % (Auto) 62.8 Lymph % (Auto) 26.5 [place] % (Auto) 7.5 Eos % (Auto) 2.1 Baso % (Auto) 1.1 Neut # (Auto) 6.8 Lymph # (Auto) 2.9 [place] # (Auto) 0.8 Eos # (Auto) 0.2 Baso # (Auto) 0.1 PT 11.9 INR 1.1 APTT 33 Sodium 140 Potassium 3.7 Chloride 102 Carbon Dioxide 31 H Anion Gap 11 BUN 18 H Creatinine 0.6 L Est GFR ( Amer) > 60 Est GFR (Non-Af Amer) > 60 Random Glucose 121 H D Calcium 9.7 Total Bilirubin 0.2 AST 23 ALT 19 Alkaline Phosphatase 82 Total Protein 7.2 Albumin 4.5 Globulin 2.8 Albumin/Globulin Ratio 1.6 Assessment & Plan - Assessment and Plan (Free Text) Assessment: 58 year old female with PMH of Rheumatoid arthritis (on Cimzia), Schatzki's ring, esophageal food bolus s/p extraction 01/2017, and tobacco abuse presenting with meat stuck in throat. Patient notes eating ribs yesterday with immediate sensation of being stuck in her throat. Active treatment of concern for esophageal foreign body 2/2 food impaction. EGD 12/2015 showed Trina esophagitis, H. pylori gastritis s/p eradication, and normal duodenal biopsies. EGD 01/2017 showed food bolus s/p removal with Valdes net, trina esophagitis, distal third esophageal Schatzki's ring, medium-sized hiatal hernia, and H. pylori negative erosive gastritis. Colonoscopy 06/2016 showed two 3-4mm sigmoid tubular adenomas, mild internal hemorrhoids, and good bowel prep with recommended five year surveillance. Plan: -CT neck- showed food bolus -received Glucagon in ER -patient endorses reflux food bolus with globus sensation resolved -patient had 2-3 ounces of water around 9AM -keep NPO -proceed with urgent EGD to evaluate food impaction -will evaluate prior history of trina esophagitis, H. pylori, and Schatzki's rin -continue PPI ACB -further recommendations after endoscopic evaluation
[2018-08-21] MEDS ORDERED: Lactated Ringer's 500 ML IV ONE ×2 (10:34)
[2018-08-21] MEDS ORDERED: Lidocaine Hydrochloride 5 ML INJ ONE (10:58)
[2018-08-21] MEDS ORDERED: Propofol 10 mg/ml Inj (20 ML) ONE (10:58)
--- NOTE | 2018-08-21 11:29 | CT ---
Date of service: 08/20/2018 PROCEDURE: CT NECK WITHOUT CONTRAST HISTORY: Food bolus stock COMPARISON: A the TECHNIQUE: CT of the neck without intravenous contrast. Coronal and sagittal reformats generated. Radiation dose: Total exam DLP = 249.99 mGy-cm. This CT exam was performed using one or more of the following dose reduction techniques: Automated exposure control, adjustment of the mA and/or kV according to patient size, and/or use of iterative reconstruction technique. FINDINGS: NASOPHARYNX: Unremarkable. SUPRAHYOID NECK: Unremarkable oropharynx, oral cavity, parapharyngeal space and retropharyngeal space. INFRAHYOID NECK: Unremarkable larynx, hypopharynx, and supraglottic space. Vocal cords intact. MASS: See below. No other abnormalities GLANDS: Parotid and submandibular glands unremarkable. Thyroid gland is slightly heterogeneous in attenuation pattern. Consider follow-up thyroid ultrasound.. LYMPH NODES: Normal. No lymphadenopathy. CERVICAL SPINE: Minor multilevel degenerative spondylosis most notably affecting C6-C7 level with a asymmetric irregular osteophytic ridge disc complex contiguous with hypertrophic uncovertebral joints greater on the left side. Changes do result in cord compression. Follow-up MRI may be prudent further evaluation.. OTHER FINDINGS: There is heterogeneous soft tissue within the proximal esophagus (best seen on axial image number 59 through 74 as well as sagittal images numbers 45-the 51) most likely representing a bolus of food. There is also slight wall thickening of the proximal to mid esophagus. Below this level. Findings may represent pre-existing esophagitis however other intrinsic circumferential wall lesion not excluded. Follow-up endoscopy is recommended. Mild vascular calcifications both carotid circulations. Large medial wall antrostomy defect. Minor mucosal thickening inferomedial aspect left maxillary antrum. IMPRESSION: There is a elliptical shaped heterogeneous soft tissue density within the proximal esophagus most likely representing a a large bolus . There is also slight wall thickening of the esophagus distal to this level possibly representing esophagitis however the possibility of other circumferential wall lesion including but not limited to esophageal carcinoma. Recommend follow-up endoscopy. Minor multilevel degenerative spondylosis most notably affecting C6-C7 level with a asymmetric irregular osteophytic ridge disc complex contiguous with hypertrophic uncovertebral joints greater on the left side. Changes do result in cord compression. Follow-up MRI may be prudent further evaluation.. Heterogeneous thyroid gland for which thyroid ultrasound follow-up is recommended. Note that this report was placed PA review folder for follow
--- NOTE | 2018-08-21 13:13 | CT ---
Date of service: 08/20/2018 PROCEDURE: CT Chest without contrast HISTORY: Food bolus. COMPARISON: Correlation made with concurrent CT scan of the neck TECHNIQUE: Contiguous axial images were obtained through the chest without intravenous contrast enhancement. Sagittal and coronal reconstructions were performed. Radiation dose: Total exam DLP = 169.3 mGy-cm. This CT exam was performed using one or more of the following dose reduction techniques: Automated exposure control, adjustment of the mA and/or kV according to patient size, and/or use of iterative reconstruction technique. FINDINGS: LUNGS: Centrilobular and early panlobular emphysematous changes upper lobes greater than lower lobes. No focal consolidation. No evidence of effusion or pneumothorax MEDIASTINUM: Heart size within range of normal. No significant pericardial effusion.. Ascending thoracic aorta measures approximately 3.1 cm and descending thoracic aorta measures approximately point 4 5 cm.. Minimal aortic atherosclerotic calcification. Pulmonary trunk measures approximately 2.4 cm.. Few small non-specific mediastinal lymph nodes. Evaluation for hilar adenopathy is limited due the lack of circulating intravenous contrast material. Central airways midline and patent. There are no large central endoluminal lesions. Again noted is an elliptical shaped heterogeneous masslike lesion within the upper esophagus most consistent with bolus of lodged food the. Mild wall thickening of the lower esophagus and less so the mid esophagus; rule out esophagitis versus other intrinsic/invasive wall lesion including but not limited to esophageal carcinoma. Follow-up endoscopy recommended. PLEURA: As above. BONES: Minor multilevel degenerative spondylosis of the thoracic spine. UPPER ABDOMEN: Grossly unremarkable. OTHER FINDINGS: None. IMPRESSION: There is an elliptical shaped presumed bolus of food lodged within the proximal esophagus. Wall thickening of the lower esophagus which may be secondary to esophagitis however invasive wall esophageal carcinoma not excluded. Recommend follow-up endoscopy. Note that this report was placed in PA review folder follow up.
[2018-08-21 15:39] VITALS: BP 133/77; PULSE 63; RESP 20; TEMP 98.7; O2SAT 99
[2018-08-21] MEDS ORDERED: Sucralfate 1 gm/10 ml Oral Susp UD PO SCH (22:00)
--- NOTE | 2018-08-21 22:42 | CP.PCM.PN ---
Subjective - Date & Time of Evaluation Date of Evaluation: 08/21/18 Time of Evaluation: 19:05 - Subjective Subjective: patient is alert and responsive. Patient denies any esophageal pain. Earlier this a.m. patient was able to expel bolus of food which was stuck in the proximal esophagus. About 10:30 this am. patient underwent endoscopy by Dr. Zuniga. Patient was noted to have esophagitis, hiatus hernia and a gastric ulcer. Patient will follow-up at the office of the GI java developer consultant. Ms. Chun was also noted to have some vascular calcifications. A carotid Doppler study was requested. Patient is anxiou to be discharged due to some problems at home. She has a follow-up appointment at my office. Objective - Vital Signs/Intake and Output Vital Signs (last 24 hours): Temp Pulse Resp BP Pulse Ox 98.7 F 63 20 133/77 99 08/21/18 15:38 08/21/18 15:38 08/21/18 15:38 08/21/18 15:38 08/21/18 15:38 Intake and Output: 08/21/18 08/22/18 18:59 06:59 Intake Total 300 Balance 300 - Labs Labs: 08/20/18 22:01 08/20/18 22:01 PT 11.9 SECONDS (9.7-12.2) 08/20/18 22:01 INR 1.1 08/20/18 22:01 APTT 33 SECONDS (21-34) 08/20/18 22:01 - Constitutional Appears: No Acute Distress - Head Exam Head Exam: NORMAL INSPECTION - Eye Exam Eye Exam: Normal appearance Pupil Exam: NORMAL ACCOMODATION - ENT Exam ENT Exam: Normal Exam - Neck Exam Neck Exam: Normal Inspection - Respiratory Exam Respiratory Exam: Decreased Breath Sounds - Cardiovascular Exam Cardiovascular Exam: REGULAR RHYTHM - GI/Abdominal Exam GI & Abdominal Exam: Normal Bowel Sounds - Rectal Exam Rectal Exam: NORMAL INSPECTION - Back Exam Back Exam: paraspinal tenderness - Neurological Exam Neurological Exam: Oriented x3 - Psychiatric Exam Psychiatric exam: Anxious - Skin Skin Exam: Dry Assessment and Plan (1) Rheumatoid arthritis Status: Chronic (2) Esophagitis Status: Resolved (3) Food impaction of esophagus Status: Acute (4) Gastric ulcer Status: Acute (5) Esophageal hiatus hernia Status: Acute (6) Vascular calcification Status: Acute
[2018-08-22] MEDS ORDERED: Influenza Vaccine 60 mcg/0.5 mL SYR (4YR UP) IM ONE (10:00)
[2018-08-22] MEDS ORDERED: Pneumococcal 23-Valent Vaccine IM ONE (10:00)
--- NOTE | 2018-08-22 13:02 | VASCLAB ---
Date of service: 08/21/2018 PROCEDURE: Carotid Duplex Exam. HISTORY: vascular calcification COMPARISON: None available. TECHNIQUE: Grayscale and duplex Doppler evaluation of the cervical carotid and vertebral arteries were performed. The common carotid, carotid bifurcations and cervical Internal Carotid Artery (ICA) and proximal External Carotid Artery (ECA) were evaluated. The vertebral arteries were evaluated for gross patency and flow direction. Report prepared by MARLO Coburn FINDINGS: RIGHT CAROTID ARTERIES: 1. Common Carotid Artery: No significant focal plaque formation of the right common carotid artery. Maximum Peak Systolic velocity: 74 cm/sec: End-diastolic velocity 21 cm/sec. 2. Carotid Bifurcation: Calcific plaque formation. Maximum Peak Systolic velocity: 80 cm/sec: End-diastolic velocity 19 cm/sec. 3. Internal Carotid Artery: Plaque description: Calcific 3.1. Proximal Segment: Peak systolic velocity 66 cm/sec: End-diastolic velocity 25 cm/sec - % stenosis 0-15% 3.2. Middle Segment: Peak systolic velocity 83 cm/sec: End-diastolic velocity 30 cm/sec - % stenosis 0-15% 3.3. Distal Segment: Peak systolic velocity 95 cm/sec: End-diastolic velocity 38 cm/sec - % stenosis 0-15% 4. External Carotid Artery: No significant focal plaque formation. Peak systolic velocity 129 cm/sec 5. ICA/CCA Ratio: 1.6 LEFT CAROTID ARTERIES: 1. Common Carotid Artery: No significant focal plaque formation of the left common carotid artery. Maximum Peak Systolic velocity: 106 cm/sec: End-diastolic velocity 25 cm/sec. 2. Carotid Bifurcation: plaque formation. Maximum Peak Systolic velocity: 62 cm/sec: End-diastolic velocity 19 cm/sec. 3. Internal Carotid Artery: Plaque description: 3.1. Proximal Segment: Peak systolic velocity 78 cm/sec: End-diastolic velocity 34 cm/sec - % stenosis 0-15% 3.2. Middle Segment: Peak systolic velocity 79 cm/sec: End-diastolic velocity 30 cm/sec - % stenosis 0-15% 3.3. Distal Segment: Peak systolic velocity 84 cm/sec: End-diastolic velocity 25 cm/sec - % stenosis 0-15% 4. External Carotid Artery: No significant focal plaque formation. Peak systolic velocity 51 cm/sec 5. ICA/CCA Ratio: 1.3 VERTEBRAL ARTERIES: 1. Right Vertebral Artery: The right vertebral artery flow direction is antegrade. 2. Left Vertebral Artery: The left vertebral artery flow direction is antegrade. OTHER FINDINGS: 1. Right Brachial Blood pressure: 110/50 mmHg. 2. Left Brachial Blood pressure: 110/70 mmHg. IMPRESSION: RIGHT: Duplex scan does not suggest hemodynamically significant stenosis of the right extracranial carotid arteries. LEFT: Duplex scan does not suggest hemodynamically significant stenosis of the left extracranial carotid arteries.
--- NOTE | 2018-08-23 10:06 | CP.PCM.DIS ---
Provider - Provider Date of Admission: 08/21/18 12:24 Attending physician: William Ocasio MD Consults: 08/20/18 22:37 Gastroenterology Consult Stat Comment: Consulting Provider: Ritika Zuniga Consulting Physician: Ritika Zuniga Reason for Consult: foreign body Time Spent in preparation of Discharge (in minutes): 24 Diagnosis - Discharge Diagnosis (1) Rheumatoid arthritis Status: Chronic (2) Esophagitis Status: Resolved (3) Food impaction of esophagus Status: Acute (4) Gastric ulcer Status: Acute (5) Esophageal hiatus hernia Status: Acute (6) Vascular calcification Status: Acute Hospital Course - Lab Results Lab Results: Most Recent Lab Values WBC 10.8 K/uL (4.8-10.8) D 08/20/18 22:01 RBC 3.85 Mil/uL (3.80-5.20) 08/20/18 22:01 Hgb 12.4 g/dL (11.0-16.0) 08/20/18 22: Hct 37.0 % (34.0-47.0) 08/20/18 22: MCV 96.2 fL (81.0-99.0) D 08/20/18 22:01 MCH 32.2 pg (27.0-31.0) H 08/20/18 22:01 MCHC 33.5 g/dL (33.0-37.0) 08/20/18 22:01 RDW 12.7 % (11.5-14.5) 08/20/18 22:01 Plt Count 288 K/uL (130-400) 08/20/18 22:01 MPV 8.1 fL (7.2-11.7) 08/20/18 22:01 Neut % (Auto) 62.8 % (50.0-75.0) 08/20/18 22: Lymph % (Auto) 26.5 % (20.0-40.0) 08/20/18 22: Graham % (Auto) 7.5 % (0.0-10.0) 08/20/18 22:01 Eos % (Auto) 2.1 % (0.0-4.0) 08/20/18 22: Baso % (Auto) 1.1 % (0.0-2.0) 08/20/18 22:01 Neut # (Auto) 6.8 K/uL (1.8-7.0) 08/20/18 22:01 Lymph # (Auto) 2.9 K/uL (1.0-4.3) 08/20/18 22:01 Graham # (Auto) 0.8 K/uL (0.0-0.8) 08/20/18 22:01 Eos # (Auto) 0.2 K/uL (0.0-0.7) 08/20/18 22:01 Baso # (Auto) 0.1 K/uL (0.0-0.2) 08/20/18 22:01 PT 11.9 SECONDS (9.7-12.2) 08/20/18 22: INR 1.1 08/20/18 22:01 APTT 33 SECONDS (21-34) 08/20/18 22:01 Sodium 140 mmol/L (132-148) 08/20/18 22:01 Potassium 3.7 mmol/L (3.6-5.2) 08/20/18 22:01 Chloride 102 mmol/L (98-107) 08/20/18 22:01 Carbon Dioxide 31 mmol/L (22-30) H 08/20/18 22:01 Anion Gap 11 (10-20) 08/20/18 22:01 BUN 18 mg/dL (7-17) H 08/20/18 22:01 Creatinine 0.6 mg/dL (0.7-1.2) L 08/20/18 22:01 Est GFR ( Amer) > 60 08/20/18 22:01 Est GFR (Non-Af Amer) > 60 08/20/18 22:01 Random Glucose 121 mg/dL (65-105) H D 08/20/18 22:01 Calcium 9.7 mg/dl (8.6-10.4) 08/20/18 22:01 Total Bilirubin 0.2 mg/dL (0.2-1.3) 08/20/18 22:01 AST 23 U/L (14-36) 08/20/18 22:01 ALT 19 U/L (9-52) 08/20/18 22:01 Alkaline Phosphatase 82 U/L (38-126) 08/20/18 22:01 Total Protein 7.2 g/dL (6.3-8.3) 08/20/18 22:01 Albumin 4.5 g/dL (3.5-5.0) 08/20/18 22:01 Globulin 2.8 gm/dL (2.2-3.9) 08/20/18 22:01 Albumin/Globulin Ratio 1.6 (1.0-2.1) 08/20/18 22:01 Discharge Exam - Head Exam Head Exam: NORMAL INSPECTION - Eye Exam Eye Exam: Normal appearance Pupil Exam: NORMAL ACCOMODATION - ENT Exam ENT Exam: Normal Exam - Neck Exam Neck exam: Normal Inspection - Respiratory Exam Respiratory Exam: Decreased Breath Sounds - Cardiovascular Exam Cardiovascular Exam: REGULAR RHYTHM - GI/Abdominal Exam GI & Abdominal Exam: Normal Bowel Sounds - Extremities Exam Extremities exam: tenderness - Back Exam Back exam: NORMAL INSPECTION - Neurological Exam Neurological exam: Oriented x3 - Psychiatric Exam Psychiatric exam: Anxious Discharge Plan - Follow Up Plan Condition: GOOD Disposition: HOME/ ROUTINE Instructions: Rosa's Esophagus (DC) Additional Instructions: eat soft food till further instruction from PMD
== END 2018-08-21 20:00 | disposition home or self-care (01) | DRG 894 ==
LOC: C.ER 19:36 → C.3T 22:40 → UNDOADMOB 22:40 → INTOOBSV 22:40 → C.3T 22:52 → OBSVTOIN 08-21 12:24 → C.3T 08-21 12:24
PROVIDERS: ADMIT Internal Medicine; ATTEND Internal Medicine
PROC: 0DB68ZX Excision of Stomach, Via Natural or Artificial Opening Endoscopic, Diagnostic (ICD-10-PCS; principal; 2018-08-21 11:01)
DX: B37.81 Candidal esophagitis (principal); K25.9 Gastric ulcer, unspecified as acute or chronic, without hemorrhage or perforation; K44.9 Diaphragmatic hernia without obstruction or gangrene; T18.128A Food in esophagus causing other injury, initial encounter; M06.9 Rheumatoid arthritis, unspecified; M47.9 Spondylosis, unspecified; F17.210 Nicotine dependence, cigarettes, uncomplicated; Z90.710 Acquired absence of both cervix and uterus